=== PATIENT | female | born 1975 | race Caucasian/White ===

== ENCOUNTER 2016-10-10 19:04 | Emergency (ER) | payer OTHER ==
[~2016-10-10] VITALS: Ht 171.4 cm; Wt 63.6 kg
[2016-10-10 19:14] VITALS: BP 147/85; PULSE 99; RESP 16; O2SAT 100
--- NOTE | 2016-10-10 19:50 | ED.REPORT ---
HPI-Overdose/Alcohol Toxicity Date of Service Oct 10, 2016 ED Provider: Doc,Ed MD History of Present Illness: has been drinking for 3 weeks, usually does not have vomiting. cousins is primary care. [facility] 3 times a week. Has librium from last detox and was wondering if it is fine to do that again Nursing Notes Stated Complaint: NEEDS ADVICE ON DETOXING Chief Complaint: Substance Abuse Allergies: Coded Allergies: nitrofurantoin (Verified Allergy, Severe, palpatations, 10/10/16) Penicillins (Verified Allergy, Unknown, 10/10/16) General Time Seen by Provider: 19:50 Chief Complaint Other (wants detox taper) Hx Obtained From: Patient Risk-Overdose/Alcohol Tox )( Suicide Risk Stratification : Alcohol use: Prior psych admission ([facility];;[facility] [place]): Substance abuseNo: Access to firearms, Close associate suicide, Family Hx of Suicide, Previous attempt RF Statements: Risk factors reviewed Past Medical History Past Medical History Denies: Asthma Past Surgical History denies Smoking History Never Smoker Social History Alcohol Use: >5 per day Drug Use: THC Occupation lives with partner, no work or school 10/10/2016 Ambulatory Status Independent Review of Systems Basic Review of Systems : No dysuria, No frequency Hematologic: No bleeding, No bruising Allergy / Immune: No allergy Physical Exam Initial Vital Signs Vital Signs (First) Date Time Temp Pulse Resp B/P Pulse Ox O2 Delivery O2 Flow Rate FiO2 10/10/16 19:14 36.5 99 16 147/85 100 Room Air Initial VS: Reviewed, Vital signs normal Head / Eyes: Atraumatic, Normocephalic, PERRL Lymphatic: No lymphadenopathy Skin: Warm, Dry, No cyanosis General/Constitutional: Awake, Alert, No acute distress, Well appearing, Well developed, Well hydrated, Well nourished, Cooperative, Not toxic appearing Respiratory / Chest: Atraumatic, Breath sounds NL, Breath sounds = bilat, No respiratory distress, No rales, No rhonchi, No wheezing Cardiovascular: Heart rate NL, Regular rhythm, Heart sounds NL, No gallop Abdomen: Atraumatic, Soft, Non-tender Neurologic: Oriented X3, Speech NL, No motor deficits, No sensory deficits, CN II - XII intact, Reflexes equal bilat, Cerebellar NL, Memory NL, Gait NL Psychiatric: Affect NL, Mood NL, Not suicidal, Not homicidal, No hallucinations , Cognitive function NL, Judgment/insight NL, Thought content NL Head / Eyes: Atraumatic, Normocephalic, PERRL ENT: Atraumatic, Airway patent, Mucous membranes moist Re-Eval/Medical Decision Med Decision/Clinical Course 41 year old female presnets with question of detox. Patient has a prescription for 2 months ago with librium. Has enough medication left for a taper. Is wondering if it is safe to continue with the librium. Advised patient it is OK to use the medication at the prescriped dose. Patient has intensive outpatient management. No sign of intentional overdose or personality disorder. Discharge & Departure Impression: Primary Impression: Alcohol abuse )( Condition at Discharge: No danger to self Patient Instructions: Abuse of Alcohol (ED), Alcohol Withdrawal (ED) Additional Instructions: You have enough medication of librium left to follow the taper on the prescription. DO NOT combine this medication with alcohol, or ativan. Continue with out patient treatment. REturn with any concerns. Referrals: Jesika Paz MD (PCP) EDSupervising Provider for APC: Nicolas Gamez MD copies to: Jesika Paz MD, Sue ARNP Oct 10, 2016 19:50
== END 2016-10-10 20:02 ==
LOC: SED 19:04
DX: F10.10 Alcohol abuse, uncomplicated (principal); Z88.0 Allergy status to penicillin; Z88.1 Allergy status to other antibiotic agents